=== PATIENT | male | born 1940 | race Caucasian/White ===

== ENCOUNTER 2017-02-10 13:54 | Emergency (ER) | payer OTHER ==
[2017-02-10 14:03] VITALS: BP 157/79; PULSE 80; TEMP 98.6; BMI 28.2
--- NOTE | 2017-02-10 14:55 | PDOC ---
History of Present Illness - General Chief Complaint: Edema Stated Complaint: SWOLLEN RT HAND Time Seen by Provider: 02/10/17 14:37 History Source: Patient Exam Limitations: No Limitations - History of Present Illness Initial Comments: 02/10/17 14:48 76-year-old male presents to the ED for evaluation of ongoing swelling to the right hand. Daughter states patient had sustained a head injury requiring a craniotomy back in October and then again in November after he developed an infection at the surgical site requiring a PICC line to the right arm. Daughter states swelling has come and gone and patient denies discomfort at the site but daughter is concerned with an underlying fracture due to his initial injury in October that involved him falling down a flight of steps. 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 Patient denies sensory changes to the right hand, fingers skin discoloration, or weakness of the right hand Timing/Duration: intermittent Severity: moderate Associated Symptoms: reports: denies symptoms Past History - Past Medical History Allergies/Adverse Reactions: Allergies Allergy/AdvReac Type Severity Reaction Status Date / Time No Known Allergies Allergy Verified 02/10/17 14:00 Home Medications: Ambulatory Orders Levetiracetam [Keppra -] 500 mg PO BID 02/10/17 Seizures: Yes (D/T CRANIOTOMY.) - Surgical History Neurologic Surgery: Yes (CRANIOTOMY X 2.) - Psycho/Social/Smoking Cessation Hx Anxiety: No Suicidal Ideation: No Smoking History: Never smoked Hx Alcohol Use: No Drug/Substance Use Hx: No Substance Use Type: None Patient Lives Alone: No Lives with/in: daughter Review of Systems - Review of Systems Able to Perform ROS?: Yes Constitutional: No: Symptoms Reported HEENTM: No: Symptoms Reported Respiratory: No: Symptoms reported Cardiac (ROS): Yes: Edema (hand) ABD/GI: No: Symptoms Reported : No: Symptoms Reported Musculoskeletal: No: Symptoms Reported Integumentary: No: Symptoms Reported Neurological: No: Symptoms reported *Physical Exam - Vital Signs Last Vital Signs Temp Pulse Resp BP Pulse Ox 98.6 F 80 18 157/79 98 02/10/17 13:59 02/10/17 13:59 02/10/17 13:59 02/10/17 13:59 02/10/17 13:59 - Physical Exam General Appearance: Yes: Nourished, Appropriately Dressed. No: Apparent Distress Comments:: 02/10/17 14:51 2+ right radial Extremity: positive: Normal Capillary Refill. negative: Normal Range of Motion (u nable to close fingers secondary to 3+ edema to hand and fingers), Tender Integumentary: positive: Normal Color, Warm, Moist Neurologic: positive: Normal Mood/Affect, Motor Strength 02/22 ED Treatment Course - RADIOLOGY Radiology Studies Ordered: Category Date Time Status HAND- RIGHT [RAD] Stat Radiology 02/10/17 14:43 Ordered DUPLEX VASCUL US-1 ARM [US] Stat Ultrasound 02/10/17 14:43 Ordered Medical Decision Making - Medical Decision Making 02/10/17 14:52 Patient with complaints of intermittent right hand swelling for the past 6 weeks. Patient states was told to elevated after he had a negative duplex and was told he had likely dependent edema. Patient denies pain to the area. Patient ordered for duplex to rule out DVT and an x-ray to rule out fracture that he may have sustained in October although unlikely since edema is intermittent and Patient has no complaints of discomfort. 02/10/17 15:42 Hand x-ray negative for acute findings. Patient on his way to ultrasound. 02/10/17 16:30 There is no sonographic evidence of DVT. Patient will be discharged home with recommendations to elevate extremity and follow-up with his surgeon And primary care physician *DC/Admit/Observation/Transfer Diagnosis at time of Disposition: Swelling of right hand - Discharge Dispostion Disposition: HOME Condition at time of disposition: Good - Patient Instructions Printed Discharge Instructions: DI for Dependent Edema Additional Instructions: Your ultrasound and x-ray were negative for findings of a clot or fracture. Please elevate your extremity as discussed and follow up with your doctors.
== END 2017-02-10 16:41 | disposition home or self-care (01) ==
LOC: JERFT 13:54
DX: R60.0 Localized edema (principal)
CPT/HCPCS: 73130-TC-RT; 93971; 99281-25